=== PATIENT | female | born 1960 | race Two or more races ===

== ENCOUNTER 2020-01-27 06:00 | Day surgery (SDC) | payer OTHER ==
[~2020-01-27] VITALS: Ht 162.6 cm; Wt 71.7 kg
[~2020-01-27 06:00] MED LIST: AMBIEN10 MG PO; AVALIDE 300-121 EACH PO; GABAPENTIN800 M1 PO; ONGLYZA5 MG PO; SULINDAC150 MG PO; ZAROXOLYN5 MG PO
[2020-01-27] MEDS ORDERED: LORATADINE10 MG (16:52)
[2020-01-27] MEDS ORDERED: FARXIGA5 MG (16:52)
[2020-01-27] MEDS ORDERED: OMEPRAZOLE20 MG (16:52)
== END 2020-01-28 13:00 | disposition home or self-care (01) ==
LOC: CIR.AMB 06:00 → SURH 09:15 → EDSTATUS 09:15 → SURH 11:00 → O/R 17:59 → SURG 17:59 → CIR.AMB 01-28 13:00 → O/R 01-28 14:10 → SURG 01-28 14:10
PROVIDERS: ATTEND Surgery
DX: C50.812 Malignant neoplasm of overlapping sites of left female breast (principal); Z90.13 Acquired absence of bilateral breasts and nipples
CPT/HCPCS: 19303; 38500; 38792; 19357; C1889

== ENCOUNTER 2020-05-25 05:25 | Day surgery (SDC) | payer OTHER ==
[~2020-05-25 05:25] MED LIST changes: +FARXIGA5 MG; +FARXIGA5 MG PO; +IBERSARTAN; +LORATADINE10 MG; +OMEPRAZOLE20 MG
== END 2020-05-25 13:30 | disposition home or self-care (01) ==
LOC: CIR.AMB 05:25
PROVIDERS: ATTEND Plastic Surgery
DX: N65.1 Disproportion of reconstructed breast (principal); Z90.13 Acquired absence of bilateral breasts and nipples; Z41.1 Encounter for cosmetic surgery; Z20.822 Contact with and (suspected) exposure to COVID-19
CPT/HCPCS: 19342; 19364; C1789; 15771

== ENCOUNTER 2021-09-16 10:29 | Inpatient (IN) | payer OTHER ==
[~2021-09-16] VITALS: Ht 162.6 cm; Wt 72.6 kg
[2021-09-16] MEDS ORDERED: NORVASC2.5 MG PO (10:42)
[2021-09-16] MEDS ORDERED: CLONAZEPAM1 M1 PO (10:44)
[2021-09-17] MEDS ORDERED: PIOGLITAZONE HC15 MG (10:14)
[2021-09-17] MEDS ORDERED: LORATADINE10 MG (10:14)
[2021-09-17] MEDS ORDERED: FLUOXETINE HCL20 MG (10:14)
[2021-09-17] MEDS ORDERED: ST. JOSEPH ASPI81 M2 (10:14)
[2021-09-17] MEDS ORDERED: LANSOPRAZOLE30 MG (10:14)
[2021-09-17] MEDS ORDERED: IRBESARTAN300 MG (10:14)
[2021-09-17] MEDS ORDERED: LEFLUNOMIDE10 MG (10:15)
[2021-09-17] MEDS ORDERED: FOLIC ACID1 MG (10:15)
[2021-09-17] MEDS ORDERED: FAMOTIDINE20 MG (10:15)
[2021-09-17] MEDS ORDERED: METFORMIN HCL500 M1 (10:15)
== END 2021-09-19 13:53 | disposition home or self-care (01) | DRG 392 ==
LOC: ER 10:29 → SURG 13:37 → SEC-K 13:37 → SURG 16:02 → SURH 21:51
PROVIDERS: ADMIT Internal Medicine; ATTEND Internal Medicine
PROC: BW21ZZZ Computerized Tomography (CT Scan) of Abdomen and Pelvis (ICD-10-PCS; principal; 2021-09-16)
DX: K57.30 Diverticulosis of large intestine without perforation or abscess without bleeding (principal); A04.72 Enterocolitis due to Clostridium difficile, not specified as recurrent; R10.32 Left lower quadrant pain; I10 Essential (primary) hypertension; E11.9 Type 2 diabetes mellitus without complications; Z79.4 Long term (current) use of insulin; Z20.822 Contact with and (suspected) exposure to COVID-19; C50.919 Malignant neoplasm of unspecified site of unspecified female breast